=== PATIENT | male | born 1970 | race Caucasian/White ===

== ENCOUNTER 2020-03-03 16:00 | Outpatient (RCR) | payer OTHER, SELFPAY ==
--- NOTE | 2020-02-06 16:05 | PTOPEVAL ---
Thank you for referring Socrates Kenny to [facility]. Please review, sign, date and return this plan of care LAN. Pt seen for initial evaluation due to right lateral epicondylitis. 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 He requires additional skilled PT 1x/wk x 4 wk to address UE impairments. I agree with and certify that the following plan of care is medically necessary. Referring Physician Date Attending Provider: ZAN Jo Referring Provider: LisPT Outpatient Evaluation Start: 02/06/20 14:23 Freq: Status: Active Protocol: Document 02/06/20 14:25 CAP (Rec: 02/06/20 15:32 CAP [id number]) Therapy Assessment Status Assessment Status Assessment Status Evaluation Outpatient Past Medical History Past Medical History Source of Past Medical History Patient Neurological History Hx Neurological Disorders No Significant History Cardiovascular History Hx Cardiac Disorders No Significant History Respiratory History Hx Respiratory Disorders No Significant History Gastrointestinal History Hx Gastrointestinal Disorders No Significant History Genitourinary History Hx Genitourinary Disorders No Significant History Musculoskeletal History Hx Other Musculoskeletal Disorders Yes: rotator cuff injury, loose kneecaps Evaluation Information Problem Diagnosis right lateral epicondylitis Onset 2 month ago Cause unknown Additional Evaluation Detail He was DX with a right shoulder rotator cuff injury, but is unsure how he injured the shoulder. Cortison injections 4 years. Subjective Information Reports he started having Query Text:As Reported By Patient/ right arm pain after cutting Family down a tree with a chainsaw. He did not hit the arm on anything that would have caused the pain. He has full motion of the arm but with pain with both motion . He will wake with hand tingling. He sleeps in all positions. 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 He will take a standing break 2x/day. He is using ice, medication and lateral epicondylitis splint to improve pain and symptoms. He reports increased pain with fishing,
--- NOTE | 2020-03-03 16:31 | PTOPEVAL ---
Thank you for referring Socrates Kenny to [facility]. Please review, sign, date and return this plan of care LAN.w Pt has received 5 therapy visits to address right elbow pain. He demonstrates improve UE strength, wrist and forearm motion, and improved tolerance with daily activities. Goals have been met, DC skilled PT services at this time. I agree with and certify that the following plan of care is medically necessary. Referring Physician Date Attending Provider: ZAN Jo Therapy re-evaluation/discharge *PT Outpatient Evaluation Start: 02/06/20 14:23 Freq: Status: Active Protocol: Document 03/03/20 15:50 CAP (Rec: 03/03/20 16:27 CAP [id number]) Therapy Assessment Status Assessment Status Assessment Status Re-evaluation Evaluation Information Problem Diagnosis right lateral epicondylitis Onset 2 month ago Cause unknown Additional Evaluation Detail He was DX with a right shoulder rotator cuff injury, but is unsure how he injured the shoulder. Cortison injections 4 years. Subjective Information He reports improve pain of the Query Text:As Reported By Patient/ left elbow. He will have Family increased pain if he wakes with his elbow flexed position for a long time When reports elbow region tightness with increased reistance or increased activities of right UE. Denies pain or limitations with lifting and carrying. Pain Assessment Timing of Pain Assessment Timing of Pain Assessment Re-assessment Pain Scale Pain Scale Used Numeric (1 - 10) Self Report Pain Assessment Right Elbow(s) Reported Pain Level 1 Pain Description Aching Pain Frequency Intermittent Lowest Pain Intensity 0 Greatest Pain Intensity 2 Pain Aggravating Factors Prolonged Position Pain Behaviors None Pain Score Pain Score 1: Self Report Upper Extremity Range of Motion Elbow/Forearm Range of Motion Right Reason Not Measured WFL/Left Elbow Flexion - Active 120 Elbow Extension - Active 0 Forearm Supination - Active 90 Forearm Pronation - Active 60 Elbow/Forearm Range of Motion Comments no pain Wrist Range of Motion Right Wrist Flexion - Active 80 Wrist Extension - Active 45 Upper Extremity Muscle Strength Testing Elbow/Forearm Right Elbow Flexion Strength
== END 2020-03-04 15:32 | disposition home or self-care (01) ==
LOC: ANHPT 16:00
PROVIDERS: PCP Family Medicine; Visit Provider Nurse Practitioner Family
DX: M25.529 Pain in unspecified elbow (principal); M77.10 Lateral epicondylitis, unspecified elbow
CPT/HCPCS: 97035; 97110; 97140; 97161

== ENCOUNTER 2020-04-21 15:01 | Outpatient (CLI) | payer OTHER, SELFPAY ==
--- NOTE | ~2020-04-21 | XR_ITS ---
XR shoulder RT min 2V DATE: 04/21/2020 15:28 INDICATION: Shoulder pain TECHNIQUE: 4 views COMPARISON: None FINDINGS: No fracture or dislocation, periosteal reaction or bone destruction or abnormal soft tissue calcification. IMPRESSION: No significant abnormality Reviewed, dictated and finalized at location B. IMPRESSION: No significant abnormality
--- NOTE | ~2020-04-21 | XR_ITS ---
XR_[id number]_CR DATE: 04/21/2020 15:28 INDICATION: Right neck pain TECHNIQUE: AP, open mouth, lateral views COMPARISON: None FINDINGS: Minimal dextroscoliosis. Diffuse osteopenia. There is normal alignment of the cervical spine. No fracture or dislocation, locked facet or prevert ebral soft tissue swelling. There is mild degenerative disc disease at C3-4, C4-5 and C5-6. IMPRESSION: Mild degenerative change Reviewed, dictated and finalized at Location A. Reviewed, dictated and finalized at location B. IMPRESSION: Mild degenerative change
== END 2020-04-21 15:02 | disposition home or self-care (01) ==
LOC: ANHIMG 15:05
PROVIDERS: PCP Family Medicine; Visit Provider Nurse Practitioner Family
DX: M54.2 Cervicalgia (principal); M25.519 Pain in unspecified shoulder
CPT/HCPCS: 72040; 73030

== ENCOUNTER 2020-07-14 17:00 | Outpatient (RCR) | payer OTHER, SELFPAY ==
--- NOTE | 2020-05-26 15:52 | PTOPEVAL ---
PHYSICAL THERAPY EVALUATION AND PLAN OF CARE Thank you for referring Socrates Kenny to [facility].? The patient is scheduled to be seen for therapy? 2x/week for 4 weeks. Please review, sign, date and return this plan of care LAN. I agree with and certify that the following plan of care is medically necessary. Referring Physician Date Attending Provider: Arti Bender NP Evaluation Diagnosis right adhesive capsulitis Onset 1 month Subjective Information Socrates is here today and Query Text:As Reported By Patient/ reports he was diagnosed with Family adhesive capsulitis. Reports difficulting raising arm overhead and reaching behind his back. Also reports difficulty sleeping. Self Report Pain Assessment Right Shoulder(s) Reported Pain Level 3 Pain Description Aching Pain Frequency Acute,Intermittent Lowest Pain Intensity 1 Greatest Pain Intensity 7 Pain Score Pain Score 3: Self Report Upper Extremity Range of Motion Scapular/ Shoulder Range of Motion Right Shoulder Flexion - Active 148 Shoulder Abduction - Active 151 Shoulder Medial Rotation - Active T7 Query Text:Reach Behind the Back Shoulder Lateral Rotation - Active T3 Query Text:Reach Behind the Head Upper Extremity Muscle Strength Testing Scapular/Shoulder Right Shoulder Flexion Strength 4- Good - Shoulder Abduction Strength 4+ Good + Shoulder Medial Rotation Strength 4+ Good + Shoulder Lateral Rotation Strength 3+ Fair + Posture Sitting Position Head/C-Spine Posture Forward Head Thoracic Spine Posture Increased Kyphosis Thorax Posture Neutral Lumbar Spine Posture Neutral Shoulder Posture (L) Forward,(R) Forward Shoulder Subluxation Position (L) Neutral,(R) Neutral Scapula Posture (L) Tipped,(R) Tipped Additional Posture Comments unable to correct thoracic kyphosis with cues Palpation trigger points noted through infraspinatus, subscapularis, and pectoralis major and minor -tight and thick tissues noted Special Tests-Upper Extremity Shoulder Special Tests Empty Can (supraspinatus) Test Positive Right Painful Arc Positive Right Drop Arm Test Negative Right Hawkin's Jace Test Negative Right Infraspinatus Test Negative Right Active Compression Test (Perry's) Positive Right PT Clinical Summary Socrates is a 49 yo male
--- NOTE | 2020-06-23 14:55 | PTOPEVAL ---
PHYSICAL THERAPY PLAN OF CARE UPDATE AND PROGRESS REPORT Thank you for referring Socrates Kenny to [facility].? The patient is scheduled to be seen for therapy? 1x/week for 4 weeks. Please review, sign, date and return this plan of care LAN. I agree with and certify that the following plan of care is medically necessary. Referring Physician Date Attending Provider: Jeevan Santoyo MD Progress Diagnosis right adhesive capsulitis Onset 2 month Subjective Information Socrates is here today and Query Text:As Reported By Patient/ reports he was diagnosed with Family adhesive capsulitis. Reports difficulting raising arm overhead and reaching behind his back. Also reports difficulty sleeping. Self Report Pain Assessment Right Shoulder(s) Reported Pain Level 1 Pain Description Soreness Upper Extremity Range of Motion Scapular/ Shoulder Range of Motion Right Shoulder Flexion - Active 155 Shoulder Abduction - Active 160 Shoulder Medial Rotation - Active T7 Query Text:Reach Behind the Back Shoulder Lateral Rotation - Active T3 Query Text:Reach Behind the Head Upper Extremity Muscle Strength Testing Scapular/Shoulder Right Shoulder Flexion Strength 4 Good Shoulder Abduction Strength 4+ Good + Shoulder Horizontal Adduction Strength 5 Normal Shoulder Medial Rotation Strength 4+ Good + Shoulder Lateral Rotation Strength 5 Normal Muscle Length Testing Muscle Length Testing Scalene Group Muscle Length (R) Mild Tightness Query Text: Upper Trapezius Muscle Length (R) Moderate Tightness Levaetor Scapulae Muscle Length (R) Moderate Tightness Posture Sitting Position Head/C-Spine Posture Neutral Position Thoracic Spine Posture Increased Kyphosis Thorax Posture Neutral Lumbar Spine Posture Neutral Shoulder Posture (L) Forward,(R) Forward Shoulder Subluxation Position (L) Neutral,(R) Neutral Scapula Posture (L) Tipped,(R) Tipped Additional Posture Comments unable to correct thoracic kyphosis with cues Palpation trigger point noted in right supraspinatus and subscapularis PT Clinical Summary Socrates is a 49 yo male presenting to outpatient physical therapy with c/o subacute right shoulder pain. Socrates demonstrates an increase shoulder ROM in flexion and abduction. He does have a mil
--- NOTE | 2020-07-14 17:26 | PTOPEVAL ---
PHYSICAL THERAPY PROGRESS REPORT Thank you for referring Socrates Kenny to [facility].? I would like patient to follow-up with physician due to increase and change of symptoms over the last 10 days with two popping events. Please review, sign, date and return this plan of care LAN. I agree with and certify that the following plan of care is medically necessary. Referring Physician Date Attending Provider: Jeevan Santoyo MD Progress Diagnosis right adhesive capsulitis Onset 2 month Subjective Information Socrates has participated in physical therapy for right shoulder adhesive capsulitis for 12 visits. He was doing very well and we were making great progress toward meeting his functional and pain goals. 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 He came to his next therapy appointment and his ROM was reduced into external rotation and there were increased pain symptoms with the motion. We decided to let the shoulder rest, perform HEP, and ice for a week and return for next therapy appointment. States that two days after that appointment he experienced another large pop in the shoulder with the same pain symptoms. He came to his appointment today without significant report of symptoms; however, he was more irritable in symptoms and PROM today than last week. States that over the last week he was putting together his stair case and had to have his help hold up the weight. he also went hunting and climbing his tree stand increased symptoms. Self Report Pain Assessment Right Shoulder(s) Reported Pain Level 1 Pain Description Tightness Other Pain Description catching, Pain Score Pain Score 1: Self Report Interventions Used Interventions Used By Clinicians Manual Therapy Techniques Pain Relief Interventions Used By None Patient Other Alleviating Interventions instructed to rest and use ice Upper Extremity Range of Motion Scapular/ Shoulder Range of Motion Right Shoulder Flexion - Active 155 Shoulder Abduction - Active 160 Shoulder Medial Rotation - Active T7 Query Text:Reach Behind the Back Shoulder Lateral Rotation - Active T3 Query Text:Reach Behind the Head Scapular/Shoulder Range of Motion no pain with ROM Comments Upper Extremity Muscle Strength Testing Scapular/Shoulder Right Shoulder Flexion Strength 4+ Good + Shoulder Abduction Strength 4+ Good + Shoulder Medial Rotation Strength 5 Normal Shoulder Lateral Rotation Strength 4- Good - (last reassess was 01/19) Palpation not specifically tender to palpation of GHJ and surrounding tissues; does have tightness to infraspinatus and supraspinatus Special Tests-Upper Extremity Shoulder Special Tests Empty Can (supraspinatus) Test Positive Right Painful Arc Positive Right Drop Arm Test
--- NOTE | 2020-08-10 10:50 | PCPTNOTE ---
PHYSICAL THERAPY DISCHARGE NOTE Attending Provider: Jeevan Santoyo MD Patient:Socrates Kenny Date of :1970 Socrates's last re-assessment note was on 07/14/2020. He called to report that he is positive for partial tear of rotator cuff and would not be continuing PT at this time. He will be discharged at this time. Thank you for referring this patient to [facility]. Please review, sign, date and return this discharge summary LAN. I have been updated about the patient's current status and I agree with discharge from the above service at this time. Referring Physician Date
== END 2020-08-10 11:13 | disposition home or self-care (01) ==
LOC: ANHPT 17:00
PROVIDERS: PCP Family Medicine; Visit Provider Orthopaedic Surgery
DX: M25.519 Pain in unspecified shoulder (principal)
CPT/HCPCS: 97110; 97140; 97161

== ENCOUNTER 2020-07-28 07:34 | Outpatient (CLI) | payer OTHER, SELFPAY ==
--- NOTE | ~2020-07-28 | MR_ITS ---
EXAMINATION: MR shoulder RT wo con DATE: 07/28/2020 08:54 INDICATION: Right shoulder pain TECHNIQUE: Magnetic resonance imaging (MRI) of the right shoulder was performed without intravenous c ontrast. Sequences included axial PD-weighted FS FSE, coronal oblique PD-weighted FS FSE, coronal obl ique T2-weighted FS FSE, sagittal PD-weighted FS FSE, and sagittal T1-weighted SE. COMPARISON: None. FINDINGS: Coracoacromial arch: The acromion undersurface is curved in morphology (type II). The coracoacromial ligament is normal. M ild acromioclavicular osteoarthritis with small inferiorly directed osteophytes which remains separat e from the underlying supraspinatus by a thin intervening fat plane. Rotator cuff: Moderate supraspinatus tendinopathy with partial-thickness bursal sided tear measures 5 mm AP and 8 m m medial to lateral and involves at least 50% of the tendon thickness centered at the critical zone a pproximately 1-1.5 cm from the superior facet footplate of the greater tuberosity. The infraspinatus, teres minor tendons are normal. Mild subscapularis tendinopathy without discrete tear. Normal rotato r cuff muscle bulk and signal. Biceps tendon, glenoid labrum and glenohumeral cartilage: Long head of the biceps tendon is normal. Glenoid labrum is normal. Glenohumeral cartilage is normal. Fluid: Small amount of fluid in the long head biceps tendon sheath which is disproportionate to the physiolo gic amount of fluid in the glenohumeral joint space consistent with mild bicipital tenosynovitis. No loose osteochondral bodies. Small amount of fluid in the subacromial/subdeltoid bursa as well as the subcoracoid bursa consistent with mild bursitis. Bones: Normal marrow signal with no edema, fracture or abnormal marrow replacing process. Minimal erosive ch gómez at the superior facet of the greater tuberosity likely related to chronic rotator cuff disease. IMPRESSION: 1. Small moderate severity partial-thickness tear at the bursal side of the critical zone of the supr aspinatus tendon. 2. Mild bicipital tenosynovitis. 3. Mild subacromial/subdeltoid and subcoracoid bursitis. Reviewed, dictated and finalized at location A. ATION AND TRAINING COORDINATOR IMPRESSION: 1. Small moderate severity partial-thickness tear at the bursal side of the cri tical zone of the supraspinatus tendon. 2. Mild bicipital tenosynovitis. 3. Mild subacromial/subdeltoid and subcoracoid bursitis.
== END 2020-07-28 07:35 | disposition home or self-care (01) ==
PROVIDERS: PCP Family Medicine; Visit Provider Nurse Practitioner Family
DX: M75.51 Bursitis of right shoulder (principal); M75.21 Bicipital tendinitis, right shoulder
CPT/HCPCS: 73221

== ENCOUNTER 2020-08-23 02:01 | Outpatient (CLI) | payer OTHER, SELFPAY ==
[2020-08-23 18:52] LABS: SARS-CoV-2 RNA PCR Negative
== END 2020-08-23 02:02 | disposition home or self-care (01) ==
LOC: ANHCOVIDDT 02:02
PROVIDERS: PCP Family Medicine; Visit Provider Orthopaedic Surgery
DX: Z01.818 Encounter for other preprocedural examination (principal); Z20.828 Contact with and (suspected) exposure to other viral communicable diseases
CPT/HCPCS: 87635; C9803; U0003

== ENCOUNTER 2020-08-26 01:18 | Day surgery (SDC) | payer OTHER, SELFPAY ==
[2020-08-19 11:05] VITALS: BMI 23.1
--- NOTE | 2020-08-25 12:07 | WPDANESEPPF ---
Anes - Initial Pre Proc Eval Procedure: Operation Date: 08/26/20 12:00 Proposed Procedures p Arthroscopic Rotator Cuff Repair Right Shoulder with Subacromial Decompression - Clay May MD Date/Time: 08/25/20 12:07 Surgeon: Clay May MD Pre Op Diagnosis: tendon tear right shoulder Patient Data Age: 49 Gender: M Height: 1.8 m Weight: 75 kg Allergies Allergy/AdvReac Type Severity Reaction Status Date / Time naproxen AdvReac Mild Diarrhea Verified 08/26/20 11:17 Home Medications Medication Instructions Recorded Confirmed Type cyclobenzaprine 10 mg tablet 10 mg PO TID PRN #30 tablet 07/29/20 08/26/20 Rx ascorbic acid (vitamin C) 1 g PO DAILY 08/19/20 08/26/20 History meloxicam 15 mg PO HS 08/19/20 08/26/20 History multivitamin [Multiple Vitamin] 1 tablet PO DAILY 08/19/20 08/26/20 History Patient hx anesthesia problems: none Family hx anesthesia problems: none PMFSH Family History Family History Mother Family history of lupus erythematosus Other Diabetes mellitus Family history of arthritis Family history of malignant neoplasm Hypertension Social History Social History Smoking status: Never smoker Alcohol intake: never Substance use: never Living arrangements: with family Additional living arrangements comments: SPOUSE AND DAUGHTER Spiritual care concerns: No Anes - Eval Final PreProcedure Day of Procedure 08/25/20 12:07 Patient weight: normal Heart: regular rate and rhythm Lungs: clear to auscultation and normal air movement Airway: Mallampati scale class II Neurological: alert and oriented Last oral intake: >/= 8 hours ASA classification: I Emergent: no Anesthetic plan: proceed Anesthesia type and monitoring: general ETT Informed Consent: The patient's anesthetic plan and its attendant risks and benefits were discussed with the patient/family/POA. Questions were solicited and answers provided to the satisfaction of the patient/family/POA.
[2020-08-26] VITALS (7 sets, daily range): BP systolic 113–132; BP diastolic 77–94; PULSE 73–102; RESP 16–20; TEMP 36.1–36.5; O2SAT 95–100
[2020-08-26] MEDS: ACETAMINOPHEN 500 MG TABLET 1000 MG PO (11:20)
[2020-08-26] MEDS: LACTATED RINGERS 1,000 ML 30 ML IV CONT ×2 (11:38→17:18)
--- NOTE | 2020-08-26 13:35 | WPDHPUPDATE1 ---
History and Physical Update Update Date/Time: 08/26/20 13:35 History and Physical has been reviewed, including an updated exam of the patient. There are NO changes in the patient's condition. Risks, benefits, and alternatives have been discussed and questions answered. Patient agrees to proceed with procedure.
--- NOTE | 2020-08-26 14:03 | WPDANESPNB ---
Anes - Peripheral Nerve Block Date/Time: 08/26/20 14:03 I have discussed with the patient/family/POA the placement of a peripheral nerve block for post-operative pain management, including associated risks, benefits, complications, and side effects. Alternative methods of post-operative analgesia were detailed. Questions were solicited and answers provided to the satisfaction of the patient/family/POA. Time-Out: A pre-procedural Time-Out was completed immediately before starting the procedure and confirmed: Patient Identification, Site, Procedure, Patient Position and the Availability of Requisite Equipment. Clinical Indications: Acute post-operative pain management requested by the operative surgeon. Nerve Block Insertion Note Anes-nerve block: supraclavicular right Patient position: supine Skin prep: chlorhexidine Needle: 22 gauge, stimulating, insulated echogenic needle. Needle length: 80 mm Technique: ultrasound (in plane) Injectate: bupivacaine 0.5% with epi 5 mcg/ml (20cc) Observations: tolerated well Complications: none Procedure start time:: 1350 Procedure end time:: 1355
[2020-08-26] MEDS: ceFAZolin 2 GM/D5W 50 ML 2 GM/50 ML BAG IVPB (14:21)
--- NOTE | 2020-08-26 16:28 | SUR.OPER ---
Nanci Grimm Tunneler Tunnel Pro System Exp 2024-08, Lot [id number]. Ultratape cobraid blue, exp 2025-03-31, Lot [id number], Ultratape cobraid blue exp 2024-11-27, Lot [id number]. Ultratape blue exp 2025-03-12, Lot [id number]. Ultratape blue exp 2024-11-19 Lot [id number]. OrthoCord Exp 2023-01-14, Lot [id number] x 2 each.
--- NOTE | 2020-08-26 17:26 | SUR.OPER ---
noted brusing right upper arm where coban applied on sterile field per Dr May/aware.
--- NOTE | 2020-08-26 17:28 | PM.PROC ---
Procedure Note - Detailed Date of procedure: 08/26/20 Pre-op diagnosis: tendon tear right shoulder 1. Rotator cuff tear (high grade partial bursal side) 2. Subacromial impingement Post-op diagnosis: same Procedure performed: 1. Arthrosocopic rotator cuff repair. 2. Arthroscopic subacromial decompression. Anesthesia: GETA Surgeon: Clay May MD White Sugar Syrup Operator: Lindsey Guevara PA-C Estimated blood loss (mL): 20 Complications: None Disposition: PACU Findings: Physician promotional advertising assistant required for surgery; including patient positioning, draping, suture retrieval, portal management, wound closure, and dressing and sling placement. Operative detail: Preoperative antibiotics were given. An interscalene block was administered in the preoperative area. The patient was bought brought to the operating room. A general anesthetic was administered. The patient was carefully positioned in the beach chair position. The head and neck were carefully positioned. The non operative extremity was also carefully positioned. The shoulder was prepped and draped in the usual sterile fashion. Examination was performed. No abnormal findings were observed. Standard posterior and anterior arthroscopic portals were established. Inflow achieved with the arthroscopic pump using saline and epinephrine. The glenohumeral joint was carefully inspected. No intraarticular treatment was required. The glenohumeral cartilage appeared healthy as did the biceps tendon. The subscapularis muscle was normal and the sub for spinatus tendon also did not show any evidence of tearing on the articular side. Attention was turned to the subacromial space. A complete bursectomy was performed. An acromioplasty was performed. The tear configuration was carefully assessed. The tear was just medial to the tendinous insertion closer to the musculotendinous junction. This was exactly opposite the subacromial spur and clearly was an abrasive affect from the acromion on the tendon. Fortunately there was good tendon remaining medial as well as lateral. The articular tendon was still intact and from the joint spaces look normal. It was elected to try to preserve this articular tendon tissue. Also it was felt that retaining the lateral tissue on the tuberosity would be beneficial. 2 bone tunnels were created. There were passed through the articular tendon into the rotator cuff footprint. The sutures were then woven into the medial tendon tissue. Six sutures were passed. A rip stop technique was utilized. The ArthroTunneler technique was utilized. Three sutures were passed through each tunnel. All sutures were then passed through the cuff tissue using the antegrade passer. The sutures were tied arthroscopically. The arthroscopic instruments were removed. The wounds were closed with 3-0 Monocryl subcuticular suture and steri strips. There were no complications. A sling was applied and the patient brought to the recovery room.
[2020-08-26] MEDS: oxyCODONE HCL (*CRX) 5 MG TAB IR PO (18:38)
== END 2020-08-26 19:00 | disposition home or self-care (01) ==
PROVIDERS: PCP Family Medicine; Visit Provider Orthopaedic Surgery
PROC: (CPT 29805; principal; 2020-08-26 12:00)
DX: M75.101 Unspecified rotator cuff tear or rupture of right shoulder, not specified as traumatic (principal); M75.41 Impingement syndrome of right shoulder; G89.18 Other acute postprocedural pain
CPT/HCPCS: 29827; 29826; 64415; A4565; A9270; J0690; J1100; J2250; J2405; J2704; J3010; J7120

== ENCOUNTER 2020-11-15 12:30 | Outpatient (RCR) | payer OTHER, SELFPAY ==
[2020-09-20 09:27] VITALS: BP_SYST 90
--- NOTE | 2020-09-20 10:22 | PTOPEVAL ---
PHYSICAL THERAPY EVALUATION AND PLAN OF CARE Thank you for referring Socrates Kenny to [facility].? The patient is scheduled to be seen for therapy? 2x/week for 4 weeks. Please review, sign, date and return this plan of care LAN. I agree with and certify that the following plan of care is medically necessary. Referring Physician Date Attending Provider: Clay May MD Evaluation Diagnosis s/p right rotator cuff repair Onset 08/26/2020 Subjective Information Surgery 3 weeks ago and doing Query Text:As Reported By Patient/ well. He wears the sling out Family of the home and when up at home. He will take it off to rest on the couch. States that pain is well managed with rest and medication. He states understanding of these precautions. Self Report Pain Assessment Right Shoulder(s) Reported Pain Level 1 Pain Description Aching Lowest Pain Intensity 0 Greatest Pain Intensity 5 Other Pain Aggravating Factors movement Pain Behaviors None Pain Score Pain Score 1: Self Report Interventions Used Interventions Used By Clinicians Manual Therapy Techniques Pain Relief Interventions Used By Ice,Medication Patient Upper Extremity Range of Motion Scapular/ Shoulder Range of Motion Right Shoulder Flexion - Passive 100 Shoulder Abduction - Passive 90 Shoulder Lateral Rotation - Passive 45 Muscle Length Testing Muscle Length Testing Upper Trapezius Muscle Length (R) Moderate Tightness Shoulder Internal Rotators Muscle Length (R) Moderate Tightness Pectoralis Major- Sternal Fibers Muscle (R) Moderate Tightness Length Pectoralis Major- Clavicular Fibers (R) Moderate Tightness Muscle Length Palpation well healed incision sites, minimal scar tissue noted PT Clinical Summary Socrates is a 49 yo male presenting to outpatient physical therapy 3.5 weeks s/p right rotator cuff repair and arthroscopy. He presents today with precautions for passive ROM for another 2 weeks. His passive ROM is progressing well for time frame since surgery and pain is well managed. He will continue to benefit from skilled PT to progress through
[2020-10-18 08:49] VITALS: BP_SYST 145
--- NOTE | 2020-10-18 09:27 | PTOPEVAL ---
PHYSICAL THERAPY PLAN OF CARE UPDATE AND PROGRESS REPORT Thank you for referring Socrates Kenny to [facility].? The patient is scheduled to be seen for therapy? 2x/week for 4 weeks. Please review, sign, date and return this plan of care LAN. I agree with and certify that the following plan of care is medically necessary. Referring Physician Date Attending Provider: Clay May MD Progress Diagnosis s/p right rotator cuff repair Onset 08/26/2020 Subjective Information Surgery 7 weeks ago and doing Query Text:As Reported By Patient/ well. Reports very minimal Family pain with mostly tightness as his complaint of right shoulder. 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 Self Report Pain Assessment Right Shoulder(s) Reported Pain Level 1 Pain Score Pain Score 1: Self Report Interventions Used Interventions Used By Clinicians Exercise,Ice Pain Relief Interventions Used By Ice,Medication Patient Upper Extremity Range of Motion Scapular/ Shoulder Range of Motion Right Shoulder Flexion - Active 152 Shoulder Flexion - Passive 155 Shoulder Abduction - Active 160 Shoulder Abduction - Passive 145 Shoulder Medial Rotation - Active hip Query Text:Reach Behind the Back Shoulder Lateral Rotation - Active 62 Upper Extremity Muscle Strength Testing Scapular/Shoulder Right Shoulder Flexion Strength 4- Good - Shoulder Abduction Strength 4- Good - Shoulder Medial Rotation Strength 5 Normal Shoulder Lateral Rotation Strength 4 Good General Exercise General Exercises Side Right Exercise Type Active/Assistive,Passive Exercise Description -Seated pulleys flexion, Query Text:Record Sets, Reps, [id number], behind back IR Resistance, and Position [id number] -standing bilateral scapular retraction red band x15 -standing bilateral shoulder extension red band x15 -Active ROM: bilateral scaption standing x15 back against wall Bike Exercise Bike Extremity Bilateral Upper Type of Bike Airdyne Duration (minutes) 4 Manual Therapy Manual Therapy Side Right Manual Therapy Location Shoulder Patient Position Supine Manual Therapy Treatment Passive Stretching,Contract/ Relax Technique Treatment C
--- NOTE | 2020-11-15 16:29 | PTOPEVAL ---
PHYSICAL THERAPY DISCHARGE SUMMARY Thank you for referring Socrates Kenny to [facility].? The patient has been seen 17 visits for progressive therapy for right rotator cuff repair. Goals have been met; D/C PT. Please review, sign, date and return this plan of care. I agree with and certify the following plan of care. Referring Physician Date Attending Provider: Clay May MD *PT Outpatient Discharge Start: 09/20/20 09:20 Freq: Status: Active Protocol: Document 11/15/20 12:34 MLV (Rec: 11/15/20 13:26 MLV [id number]) Assessment Status Discharge Evaluation Information Problem Diagnosis s/p right rotator cuff repair Onset 08/26/2020 Subjective Information Patient reports no pain when Query Text:As Reported By Patient/ not moving and sleeping. The Family patient feels stronger and the only symptom remaining is some mild tightness with movements. Patient denies trouble with his exercises at home. Patient Pain Assessment Timing of Pain Assessment Timing of Pain Assessment Assessment Self Report Self Report Pain Level 0 Pain Score Pain Score 0: Self Report Upper Extremity Range of Motion General Upper Extremity Range of Motion Gross Upper Extremity Range of Motion active shoulder motion right: Comments flexion 157, abduction 157, extension 56, ER 80, IR 40 degrees (supine measurement for rotations) *IR reach behind back: right to T12, left to T5. Upper Extremity Muscle Strength Testing General Upper Extremity Strength Gross Upper Extremity Strength Comments 5/5 throughout right shoulder motions with isometric testing . Fatigue with repetitions of resistive exercise minimal to none Posture Posture Standing Position Additional Posture Comments simba. shoulders forward with increased forward position during IR attempts. Patient educated on correcting control of posture with movement to further improved IR active motion on the right. PT Clinical Summary Mr. Kenny is a 49 y/o male who has been seen 17 visits for the dx of right rot. cuff repair. The patient has
== END 2020-11-16 12:51 | disposition home or self-care (01) ==
LOC: ANHPT 12:30
PROVIDERS: PCP Family Medicine; Visit Provider Orthopaedic Surgery
DX: Z48.89 Encounter for other specified surgical aftercare (principal)
CPT/HCPCS: 97110; 97140; 97161

== ENCOUNTER 2021-02-01 08:48 | Outpatient (CLI) | payer OTHER, SELFPAY ==
--- NOTE | 2021-02-01 | ECG_ITS ---
Measurements Intervals [place] Rate: 58 P: 52 [place]: 143 QRS: 37 QRSD: 105 T: 14 QT: 394 QTc: 390 Interpretive Statements SINUS BRADYCARDIA BASELINE ARTIFACT- V1 BORDERLINE ECG Electronically Signed On 02-01-2021 9:59:06 CDT by Maximino Barbosa D.O.
[2021-02-01 09:21] LABS: Hematocrit 47.4 % (42.0-52.0); Hemoglobin 15.9 g/dL (14.0-18.0); Mean Corpuscular HGB Conc 33.5 g/dl (32-36); Mean Corpuscular Hemoglobin 29.9 pg (26-34); Mean Corpuscular Volume 89.1 fl (80-100); Mean Platelet Volume 10.7 fl (7.4-10.4); Platelet Count Result 218 k/mm3 (150-375); Red Blood Count 5.32 M/mm3 (4.6-6.20); Red Cell Distribution Width 12.4 % (11.5-14.5); White Blood Count 4.3 K/mm3 (4.5-10.0)
[2021-02-01 09:33] LABS: Anion Gap 5 mmol/L (8-16); Blood Urea Nitrogen 15 mg/dL (9-20); Calcium 9.4 mg/dL (8.4-10.2); Carbon Dioxide 28 mmol/L (22-30); Chloride 107 mmol/L (98-107); Cholesterol 207 mg/dL (0-200); Estimated Glomerular Filt Rate > 60; Glucose 98 mg/dL (75-110); HDL Direct 39 mg/dL; Potassium 4.2 mmol/L (3.4-5.0); Sodium 140 mmol/L (137-145); Triglycerides 118 mg/dL (<150)
[2021-02-01 09:43] LABS: LDL Cholesterol Direct 141 mg/dL
[2021-02-01 10:06] LABS: Prostate Specific Antigen 1.7 ng/mL (< OR = 4.0)
== END 2021-02-01 08:49 | disposition home or self-care (01) ==
PROVIDERS: PCP Family Medicine; Visit Provider Nurse Practitioner Family
DX: Z12.5 Encounter for screening for malignant neoplasm of prostate (principal); R07.89 Other chest pain; Z13.220 Encounter for screening for lipoid disorders; R00.1 Bradycardia, unspecified
CPT/HCPCS: 36415; 80048; 80061; 84153; 84443; 85027; 93005

== ENCOUNTER 2021-03-01 08:58 | Outpatient (CLI) | payer OTHER, SELFPAY ==
--- NOTE | 2021-03-01 09:03 | EST_ITS ---
Patient Info Name: Socrates Kenny Age: 50 years : 1970 Gender: Male Ht: 72 in Wt: 165 lbs BSA: 1.95 m2 Exam Date: 03/01/2021 9:08 AM Exam Location: [facility] Stress Patient Status: Outpatient Admit Date: 03/01/2021 Staff Ordering Physician: Arlene العراقي Attending Provider: Arlene العراقي Exercise Technologist: Cynthia Ruelas RDCS Exercise Physician: Maximino Barbosa DO Exam Type: CA stress test treadmill Study Info Indications R07.9 - Chest pain, unspecified A treadmill exercise stress test was performed. Summary 1. 1. Negative Oswald exercise stress test for ischemic ST changes by ECG criteria. 2. 2. Good functional capacity, achieving 10 METs of workload. 3. 3. Appropriate HR response to exercise. 4. 4. Appropriate HR recovery at 1 minute post exercise. 5. 5. No imaging with stress testing. 6. 6. Patient informed of the above results. Protocol: Oswald Stress ECG Details Stage: REST Duration (min): 6 min : 4 sec Speed (mph): 0.0 Grade (%): 0 HR (bpm): 66 SBP (mmHg): 112 DBP (mmHg): 51 METS: --- Stage: REST Duration (min): 10 min : 45 sec Speed (mph): 0.0 Grade (%): 0 HR (bpm): 64 SBP (mmHg): 112 DBP (mmHg): 51 METS: --- Stage: STAGE 1 Duration (min): 1 min : 0 sec Speed (mph): 1.7 Grade (%): 10 HR (bpm): 95 SBP (mmHg): 112 DBP (mmHg): 51 METS: --- Stage: STAGE 1 Duration (min): 2 min : 0 sec Speed (mph): 1.7 Grade (%): 10 HR (bpm): 106 SBP (mmHg): 112 DBP (mmHg): 51 METS: --- Stage: STAGE 1 Duration (min): 3 min : 0 sec Speed (mph): 1.7 Grade (%): 10 HR (bpm): 111 SBP (mmHg): 119 DBP (mmHg): 85 METS: --- Stage: STAGE 2 Duration (min): 1 min : 0 sec Speed (mph): 2.5 Grade (%): 12 HR (bpm): 121 SBP (mmHg): 119 DBP (mmHg): 85 METS: --- Stage: STAGE 2 Duration (min): 2 min : 0 sec Speed (mph): 2.5 Grade (%): 12 HR (bpm): 130 SBP (mmHg): 158 DBP (mmHg): 90 METS: --- Stage: STAGE 2 Duration (min): 3 min : 0 sec Speed (mph): 2.5 Grade (%): 12 HR (bpm): 141 SBP (mmHg): 158 DBP (mmHg): 90 METS: --- Stage: STAGE 3 Duration (min): 1 min : 0 sec Speed (mph): 3.4 Grade (%): 14 HR (bpm): 151 SBP (mmHg): 158 DBP (mmHg): 90 METS: --- Stage: STAGE 3 Duration (min): 2 min : 0 sec Speed (mph): 3.4 Grade (%): 14 HR (bpm): 165 SBP (mmHg): 158 DBP (mmHg): 90 METS: --- Stage: STAGE 1 Duration (min): 3 min : 0 sec Speed (mph): 1.7 Grade (%): 10 HR (bpm): 111 SBP (mmHg): 119 DBP (mmHg): 85 METS: --- Stage: STAGE 2 Duration (min): 3 min : 0 sec Speed (mph): 2.5 Grade (%): 12 HR (bpm): 141 SBP (mmHg): 158 DBP (mmHg): 90 METS: --- Stage: STAGE 3 Duration (min): 3 min : 0 sec Speed (mph)
== END 2021-03-01 08:59 | disposition home or self-care (01) ==
PROVIDERS: PCP Family Medicine; Visit Provider Nurse Practitioner Family
DX: R07.9 Chest pain, unspecified (principal)
CPT/HCPCS: 93017

== ENCOUNTER 2022-05-03 13:31 | Outpatient (CLI) | payer OTHER, SELFPAY ==
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
== END 2022-05-03 13:32 | disposition home or self-care (01) ==
LOC: ANHIMG 13:37
PROVIDERS: PCP Family Medicine; Visit Provider Physician Assistant Medical
DX: R07.81 Pleurodynia (principal)
CPT/HCPCS: 71046

== ENCOUNTER 2023-10-31 10:05 | Outpatient (CLI) | payer OTHER, SELFPAY ==
[2023-10-31 11:00] LABS: Hematocrit 49.5 % (42.0-52.0); Mean Corpuscular HGB Conc 32.3 g/dl (32-36); Mean Corpuscular Hemoglobin 29.7 pg (26-34); Mean Platelet Volume 11.2 fl (7.4-10.4); Platelet Count Result 233 k/mm3 (150-375); Red Blood Count 5.38 M/mm3 (4.6-6.20); Red Cell Distribution Width 12.7 % (11.5-14.5); White Blood Count 5.8 K/mm3 (4.5-10.0)
[2023-10-31 12:04] LABS: Alanine Aminotransferase 27 U/L (6-50); Albumin Level 4.4 g/dL (3.5-5.1); Alkaline Phosphatase 100 U/L (38-126); Anion Gap 7 mmol/L (8-16); Aspartate Amino Transferase 25 U/L (17-59); Blood Urea Nitrogen 17 mg/dL (9-20); Calcium 9.6 mg/dL (8.4-10.2); Carbon Dioxide 27 mmol/L (22-30); Chloride 106 mmol/L (98-107); Cholesterol 202 mg/dL (0-200); Estimated Glomerular Filt Rate > 60; Glucose 100 mg/dL (65-110); HDL Direct 40 mg/dL; Potassium 3.9 mmol/L (3.4-5.0); Sodium 140 mmol/L (137-145); Triglycerides 113 mg/dL (<150)
[2023-10-31 12:24] LABS: LDL Cholesterol Direct 137 mg/dL
[2023-10-31 12:43] LABS: Prostate Specific Antigen 3.2 ng/mL (< OR = 4.0)
== END 2023-10-31 10:06 | disposition home or self-care (01) ==
PROVIDERS: PCP Family Medicine; Visit Provider Nurse Practitioner Family
DX: D72.819 Decreased white blood cell count, unspecified (principal); Z13.29 Encounter for screening for other suspected endocrine disorder; Z12.5 Encounter for screening for malignant neoplasm of prostate; E78.00 Pure hypercholesterolemia, unspecified; Z13.1 Encounter for screening for diabetes mellitus
CPT/HCPCS: 36415; 80053; 80061; 84153; 84443; 85027; G0103

== ENCOUNTER 2024-05-08 15:29 | Outpatient (CLI) | payer OTHER, SELFPAY ==
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
== END 2024-05-08 15:30 | disposition home or self-care (01) ==
LOC: ANHIMG 15:34
PROVIDERS: PCP Family Medicine
DX: M19.041 Primary osteoarthritis, right hand (principal)
CPT/HCPCS: 73120

== ENCOUNTER 2025-03-25 13:52 | Outpatient (CLI) | payer OTHER, SELFPAY ==
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
== END 2025-03-25 13:53 | disposition home or self-care (01) ==
PROVIDERS: PCP Family Medicine; Visit Provider Nurse Practitioner Adult Health
DX: M25.512 Pain in left shoulder (principal); M25.612 Stiffness of left shoulder, not elsewhere classified
CPT/HCPCS: 73030

== ENCOUNTER 2025-05-20 14:30 | Outpatient (RCR) | payer OTHER, SELFPAY ==
--- NOTE | 2025-04-09 11:54 | OPREHPOC ---
Outpatient Therapy Plan of Care This is a Multidisciplinary Plan of Care that may contain components documented by all disciplines (PT, OT, and ST.) PT Problem 1 PT Problem #1 Knowledge Deficit PT Goal 1 Goal / Goal Update 1*independent with HEP 2* pt voice correct work station set up Target Visit 8 PT Problem 2 PT Problem #2 Pain PT Goal 1 Goal / Goal Update 1* pt report pain rating of 2/10 at worst 2* pt report times of NO pain 3* pt report with sleeping, awaken 1x/night due to pain Target Visit 8 PT Problem 3 PT Problem #3 Impaired Strength PT Goal 1 Goal / Goal Update Increase thoracic- scapular strength, to improve posture and positioning: * pt stand with L shoulder in correct position Target Visit 8 PT Problem 4 PT Problem #4 Impaired Flexibility PT Goal 1 Goal / Goal Update pt perform 3 reps without an increase in pain reported 1* cervical rotation to L 2* cervical extension Target Visit 8
--- NOTE | 2025-04-09 11:55 | PTOPEVAL1 ---
Assessment and note entered by Kelly Webster, PT Evaluation Information Assessment Status Evaluation ICD-10 Condition Codes (PT) Cervicalgia M54.2,Pain in left shoulder M25.512 Onset March 17 Subjective Information beginning of March, start of L shoulder and neck pain; R hand dominant; can do everything at home, but have pain moving L arm dr gave him muscle relaxer and pain meds; xray: joint space narrowing, subdhondral cyst formation, osteophyte, mild OA; History: R shoulder arthroscopy activity: computer work; independent with all home and work tasks Reported Pain Level Pain Score Self Report Additional Pain Score Comments pain range in the past week 1-10; top of shoulder, upper traps increase pain; sleeping decrease pain: meds with sleeping: tend to sleep on stomach, but do change to sides and back; awaken from sleep 2x/ night due to pain Assessment PT Clinical Summary Socrates has the diagnosis of cervical pain, L shoulder pain with onset about 3 weeks ago when awakening in the morning. He is able to do all of his usual activity but pain always there and sleeping is disrupted- awaken 2x/night due to pain . Neck Index self rating is 12 % limitation in activity level. 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 With the evaluation: he has full ROM of L shoulder and cervical, with cervical rotation to L and extension have an increase pain in L upper traps area; poor posture with forward head, rounded shoulders and trunk; tenderness over L upper traps. Skilled PT services are indicated for modalities to decrease pain and tightness over upper traps, therapeutic exercises to stretch upper traps and strengthen thoracic-scapular area for improved posture and positioning of neck and shoulder, with education for HEP and posture/ body mechanics. Plan of Care Interventions Electrical Stimulation,Hot Pack/Cold Pack,Manual Therapy,Mechanical Traction,Neuro Re-education, Patient/Caregiver Education,Therapeutic Activities ,Therapeutic Exercise,Ultrasound,Other Other Interventions taping, dry needling--he agrees to & has had in the past PT Services Indicated Yes Treatment Frequency and 1-2x/wk for 8 visits Duration These treatments will address the objective and functional deficits as defined above. The patient will be advanced safely and appropriately in order for the patient to progress towards his/her prior level of function. Additional exercises will be introduced and as well as a comprehensive home exercise program upon discharge, if needed, ?to ensure carryover of functional gains achieved in the clinic. This treatment plan has been reviewed and agreement upon by the patient.
--- NOTE | 2025-05-20 15:20 | OPREHPOC ---
Outpatient Therapy Plan of Care This is a Multidisciplinary Plan of Care that may contain components documented by all disciplines (PT, OT, and ST.) PT Problem 1 PT Problem #1 Knowledge Deficit PT Goal 1 Goal / Goal Update 1*independent with HEP 2* pt voice correct work station set up 05-20-25 d/c goals met Target Visit 8 Progress Met PT Problem 2 PT Problem #2 Pain PT Goal 1 Goal / Goal Update 1* pt report pain rating of 2/10 at worst 2* pt report times of NO pain 3* pt report with sleeping, awaken 1x/night due to pain 05-20-25 d/c goals not met Target Visit 8 Progress Not Met PT Problem 3 PT Problem #3 Impaired Strength PT Goal 1 Goal / Goal Update Increase thoracic- scapular strength, to improve posture and positioning: * pt stand with L shoulder in correct position 05-20-25 d/c goal met Target Visit 8 Progress Met PT Problem 4 PT Problem #4 Impaired Flexibility PT Goal 1 Goal / Goal Update pt perform 3 reps without an increase in pain reported 1* cervical rotation to L 2* cervical extension 05-20-25 d/c goal 2 met Target Visit 8 Progress Partially Met
--- NOTE | 2025-05-20 15:20 | PTOPDC ---
Assessment and note entered by Kelly Webster, PT Assessment Status Discharge ICD-10 Condition Codes (PT) Cervicalgia M54.2,Pain in left shoulder M25.512 Onset March 17 Subjective Information having more numbness, all L fingers are numb, all the time; have been doing the exercises, and feel like I am stronger but still having problems; going to have an MRI of shoulder on Oct 1 and elbow and nerve test of L arm Oct 14; Reported Pain Level Pain Score 2: Self Report Additional Pain Score Comments pain range in the past week 2-5/10; pain in L shoulder, numbness in L arm to all fingers- constant; no pain in neck; increase pain: prone on elbows, lie on stomach and turn head to L decrease pain: change positions; muscle relaxers to help sleep; muscle cream; ice; also have arthritis med script- not sure if it helps or not report awakening from sleep due to pain 2-3x/night ; Assessment PT Clinical Summary Socrates has received 8 PT sessions. Initial evaluation compared to today's assessment: pain rating from 1-4/10 to 2-5/10 with constant numbness into L UE to all fingers; self assessment with neck index rating from 12 to 18% limitation in activity level; reports same with awakening from sleeping 2x/night due to pain; cervical rotation to the L still increases L cervical pain; no longer has pain with cervical extension; posture with rounded shoulders, L more forward than R; education for HEP, posture and body mechanics. The goals were partially met. He is scheduled to have an MRI and nerve conduction test. Discharge PT at this time. He is to continue with his HEP, monitor posture at work station, frequent position changes and monitor numbness in UE. Plan of Care PT Services Indicated No
== END 2025-05-21 10:35 | disposition home or self-care (01) ==
LOC: ANHPT 14:30
PROVIDERS: PCP Family Medicine; Visit Provider Nurse Practitioner Adult Health
DX: M54.12 Radiculopathy, cervical region (principal); M25.619 Stiffness of unspecified shoulder, not elsewhere classified; M75.100 Unspecified rotator cuff tear or rupture of unspecified shoulder, not specified as traumatic
CPT/HCPCS: 97014; 97110; 97140; 97161; 97530; G0283

== ENCOUNTER 2025-06-17 13:43 | Outpatient (CLI) | payer OTHER, SELFPAY ==
--- NOTE | ~2025-06-17 | MR_ITS ---
EXAMINATION: MR shoulder LT wo con DATE: 06/17/2025 14:31 INDICATION: Left shoulder stiffness and pain TECHNIQUE: Magnetic resonance imaging (MRI) of the left shoulder was performed without intravenous contrast. Sequences included axial PD-weighted FS FSE, coronal oblique PD-weighted FS FSE, coronal oblique T2-weighted FS FSE, sagittal PD-weighted FS FSE, and sagittal T1-weighted SE. COMPARISON: None. FINDINGS: Coracoacromial arch: The acromion undersurface is curved in morphology (type II). The coracoacromial ligament is normal. Mild acromioclavicular osteoarthritis. Rotator cuff: Mild supraspinatus tendinopathy. There is a small partial-thickness intrasubstance tear extending 5 mm AP along the posterior aspect of the superior facet footplate of the supraspinatus tendon. The tear measures up to 6 mm medial to lateral and involves up to one third to one half of the tendon thickness but appears to spare the articular and bursal sides of the tendon. There is mild cystic change underlying the superior facet likely related to chronic rotator cuff disease. The teres minor and subscapularis tendons are normal. Normal rotator cuff muscle bulk and signal. Biceps tendon, glenoid labrum and glenohumeral cartilage: Long head of the biceps tendon is normal. Glenoid labrum is normal. Glenohumeral cartilage is normal. Fluid: Physiologic amount of fluid in the glenohumeral joint and biceps tendon sheath. No loose osteochondral bodies. Mild increased fluid signal in the subacromial/subdeltoid bursa consistent with minimal bursitis. Bones: Normal marrow signal with no edema, fracture or abnormal marrow replacing process. IMPRESSION: 1. Supraspinatus tendinopathy with small mild to moderate severity intrasubstance tear extending 5 mm AP along the superior facet footplate of the tendon. 2. Mild acromion clavicular osteoarthritis. 3. Minimal subacromial/subdeltoid bursitis. Reviewed, dictated and finalized at location A. IMPRESSION: 1. Supraspinatus tendinopathy with small mild to moderate severity intrasubstan ce tear extending 5 mm AP along the superior facet footplate of the tendon. 2. Mild acromion clavicular osteoarthritis. 3. Minimal subacromial/subdeltoid bursitis.
== END 2025-06-17 13:44 | disposition home or self-care (01) ==
PROVIDERS: PCP Family Medicine; Visit Provider Nurse Practitioner Adult Health
DX: M54.12 Radiculopathy, cervical region (principal); R20.0 Anesthesia of skin; M19.012 Primary osteoarthritis, left shoulder; M75.52 Bursitis of left shoulder
CPT/HCPCS: 73221

== ENCOUNTER 2025-07-02 12:18 | Outpatient (CLI) | payer OTHER, SELFPAY ==
--- NOTE | 2025-07-02 13:00 | NEURO_ITS ---
Impression: # Complains of pain in left shoulder. ? # Not Carpal Tunnel Syndrome ? 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 ? # Needle/ EMG exam with mild scarcity of motor unit potentials in left Deltoid muscle without anyother neurogenic changes. ? # Patient does have left Ulnar to median double cross innervation. ? # Considering left Deltoid mild scarcity of motor unit potentials, higher involvement needs to be ruled out and MRI of cervical spine suggested. ? Nerve Conduction Studies ?Stim Site NR Peak (ms) P-T Amp (?V) Site1 Site2 Delta-P (ms) Dist (cm) Kranthi (m/s) Left Median Anti Sensory (2-3nd Digit) Wrist ? 3.0 9.1 Wrist 2-3nd Digit 3.0 14.0 47 Wrist ? 3.2 9.9 Wrist 2-3nd Digit 3.0 14.0 47 Right Median Anti Sensory (2-3nd Digit) Wrist ? 3.5 8.3 Wrist 2-3nd Digit 3.5 14.0 40 Wrist ? 3.4 7.8 Wrist 2-3nd Digit 3.5 14.0 40 Left Radial Anti Sensory (Base 1st Digit) Wrist ? 1.8 24.9 Wrist Base 1st Digit 1.8 0.0 Right Radial Anti Sensory (Base 1st Digit) Wrist ? 2.0 23.1 Wrist Base 1st Digit 2.0 0.0 Left Ulnar Anti Sensory (5th Digit) Wrist ? 2.8 15.5 Wrist 5th Digit 2.8 14.0 50 Right Ulnar Anti Sensory (5th Digit) Wrist ? 2.3 15.4 Wrist 5th Digit 2.3 14.0 61 ?Stim Site NR Onset (ms) O-P Amp (mV) Site1 Site2 Delta-0 (ms) Dist (cm) Kranthi (m/s) Left Median Motor (Abd Poll Brev)??? ULNAR TO MEDIAN CROSS INERVATION Wrist ? 3.3 2.0 Elbow Wrist 5.7 31.0 54 Elbow ? 9.0 5.2 ELB/ADM Wrist 0.3 0.0 ELB/ADM ? 3.6 5.8 Erbs ELB/ADM 6.6 0.0 Erbs ? 10.2 4.1 ? 8.0 4.1 Right Median Motor (Abd Poll Brev) Wrist ? 3.4 1.7 Elbow Wrist 5.4 30.0 56 Elbow ? 8.8 5.4 Left Ulnar Motor (Abd Dig Minimi) Wrist ? 3.0 9.0 A Elbow Wrist 6.2 32.0 52 A Elbow ? 9.2 6.4 B Elbow Wrist 4.2 23.0 55 B Elbow ? 7.2 6.4 Right Ulnar Motor (Abd Dig Minimi) Wrist ? 2.6 6.5 A Elbow Wrist 6.1 31.0 51 A Elbow ? 8.7 5.1 B Elbow Wrist 4.4 22.0 50 B Elbow ? 7.0 4.7 F Wave Studies ?NR F-Lat (ms) L-R F-Lat (ms) Left Median (Mrkrs) (Abd Poll Brev) ? 30.51 2.36 Right Median (Mrkrs) (Abd Poll Brev) ? 32.87 2.36 Left Ulnar (Mrkrs) (Abd Dig Min) ? 29.32 2.83 Right Ulnar (Mrkrs) (Abd Dig Min) ? 32.15 2.83 Electromyography ?Side Muscle Nerve Root Ins Act Fibs Amp Dur Recrt Comment Right 1stDorInt Ulnar C8-T1 Nml Nml Nml Nml Nml Right Ext Indicis Radial (Post Int) C7-8 Nml Nml Nml Nml Nml Right Ext Digitorum Radial (Post Int) C7-8 Nml Nml Nml Nml Nml Right BrachioRad Radial C5-6 Nml Nml Nml Nml Nml Right PronatorTeres Median C6-7 Nml Nml Nml Nml Nml Right Abd Poll Brev Median C8-T1 Nml Nml Nml Nml Nml Right ABD Dig Min Ulnar C8-T1 Nml Nml Nml Nml Nml Right FlexPolLong Median (Ant Int) C7-8 Nml Nml Nml Nml Nml Right Abd Poll Long Radial (Post Int) C7-8 Nml Nml Nml Nml Nml Left 1stDorInt Ulnar C8-T1 Nml Nml Nml Nml Nml Left Ext Indicis Radial (Post Int) C7-8 Nml Nml Nml Nml Nml Left Ext Digitorum Radial (Post Int) C7-8 Nml Nml Nml Nml Nml Left BrachioRad Radial C5-6 Nml Nml Nml Nml Nml Left PronatorTeres Median C6-7 Nml Nml Nml Nml Nml Left Abd Poll Brev Median C8-T1 Nml Nml Nml Nml Nml Left ABD Dig Min Ulnar C8-T1 Nml Nml Nml Nml Nml Left FlexPolLong Median (Ant Int) C7-8 Nml Nml Nml Nml Nml Left Abd Poll Long Radial (Post Int) C7-8 Nml Nml Nml Nml Nml Right Biceps Musculocut C5-6 Nml Nml Nml Nml Nml Right Triceps Radial C6-7-8 Nml Nml Nml Nml Nml Right Deltoid Axillary C5-6 Nml Nml Nml Nml Nml Left Biceps Musculocut C5-6 Nml Nml Nml Nml Nml Left Triceps Radial C6-7-8 Nml Nml Nml Nml Nml Left Deltoid Axillary C5-6 Nml Nml Nml Nml Nml
== END 2025-07-02 12:19 | disposition home or self-care (01) ==
PROVIDERS: PCP Family Medicine; Visit Provider Nurse Practitioner Adult Health
DX: M25.512 Pain in left shoulder (principal); R20.0 Anesthesia of skin; G56.23 Lesion of ulnar nerve, bilateral upper limbs
CPT/HCPCS: 95886; 95911

== ENCOUNTER 2025-07-08 08:34 | Outpatient (CLI) | payer OTHER, SELFPAY ==
--- NOTE | 2025-07-08 09:25 | ECG_ITS ---
Test Date: 2025-07-08 09:36:14 Measurements Intervals [place] Rate: 56 P: 65 [place]: 153 QRS: 43 QRSD: 102 T: 33 QT: 380 QTc: 368 Interpretive Statements SINUS BRADYCARDIA INCOMPLETE RIGHT BUNDLE BRANCH BLOCK BASELINE ARTIFACT- I, II, III, AVR, AVL, AVF, V1 BORDERLINE ECG No previous ECG available for comparison Electronically Signed On 07-08-2025 09:43:54 CDT by Maximino Barbosa D.O.
== END 2025-07-08 08:35 | disposition home or self-care (01) ==
LOC: ANHLAB 08:37 → ANHCARD 09:23
PROVIDERS: PCP Family Medicine; Visit Provider Family Medicine
DX: R07.9 Chest pain, unspecified (principal); Z01.818 Encounter for other preprocedural examination; I45.10 Unspecified right bundle-branch block
CPT/HCPCS: 93005

== ENCOUNTER 2025-08-11 00:48 | Day surgery (SDC) | payer OTHER, SELFPAY ==
[2025-07-30 12:42] VITALS: BMI 23.1
--- NOTE | 2025-07-30 12:43 | PC.NURSE ---
[facility] has started construction of its new state of the art ER which will open Spring 2026. With this, we anticipate parking may be a challenge for some our surgical patients and families. Parking spaces are limited but are available for all Surgical, obstetrics, and ER patients sharing this lot. If you arrive and find you are having a hard time finding a parking space, please note that we understand the challenges, please drive around the hospital and park near Hospital Entrance 1. When you enter this entrance, you can ask a volunteer to direct or take you back to the surgical waiting area to check in. We appreciate everyone?s understanding of these expected challenges while we build for your future. Report to the Outpatient Waiting Room, entrance under the green pavilion located off [address], at time _1100_ on date _[phone]_. Planned Procedure Time: _1pm_.? Time changes happen often and if your time is changed the preop area will call you the afternoon before. - You and your visitor will be asked to self-screen and do not enter if you have any COVID symptoms. Please call surgeon if you need to reschedule. - A mask is optional within the hospital at this time. Patients may have clear liquids (water, carbonated beverages, clear teas, apple juice) until 3 hours prior to surgery with a maximum of 20 ounces. - No food from midnight until time of surgery and no smoking, or chewing tobacco (or any form of nicotine). No chewing gum, candy or mints. Take only the following medications with a SIP of water on the morning of surgery: __None DO NOT STOP ANY OF YOUR OTHER PRESCRIPTION MEDICATIONS PRIOR TO SURGERY EXCEPT THE FOLLOWING Hold all vitamins and supplements for 3 days per anesthesiologist. Medications to discontinue per physician ____Meloxicam Date to take last lsmo__[phone]____ Please no make-up, nail albanian, hairspray, perfume, deodorant, or body powder the day of surgery.? No jewelry (including any body piercings) or valuables the day of surgery, leave them at home.? Please take a shower or bath the night before, or the morning of, surgery with an antibacterial soap.? Wear comfortable, loose fitting clothing.? - Jewelry must be removed prior to entering the operating room.? Rings and piercings that are not removed may be cut off. - The hospital will not accept responsibility for valuables.? - Please leave all valuables, including medications, at home the day of surgery. If you are going home after surgery, a licensed driver's license examiner must drive you home.? - NO public transportation without another adult if you receive anesthesia. - We recommend that an adult stay with you for 24 hours following discharge. - We also recommend that you do not drive, make important decision, drink alcoholic beverages, or take any drugs that were not prescribed by your health care provider for at least 24 hours after your discharge time. Follow any additional instructions given to you from your surgeon. Telephone instructions given to _Socrates__and asked if any additional questions and then verbalized understanding. Patient advised to call surgeon office or pre surgery nurse liaison [phone] if any additional questions.
[2025-08-11] VITALS (10 sets, daily range): BP systolic 101–125; BP diastolic 65–88; PULSE 60–93; RESP 16–20; TEMP 36.1–36.2; O2SAT 95–100
--- NOTE | ~2025-08-11 | XR_ITS ---
EXAMINATION: XR shoulder LT min 2V, 08/11/2025 17:43 [facility] HISTORY: post op COMPARISON: No comparisons available. Findings: No acute fracture or malalignment. No significant degenerative changes. Soft tissues unremarkable. Impression: No acute fracture or malalignment. Reviewed, dictated and finalized at location P. [facility] SPECIALIST Impression: No acute fracture or malalignment.
--- NOTE | 2025-08-11 07:15 | WPDHPUPDATE1 ---
History and Physical Update Update Date/Time: 08/11/25 07:15 History and Physical has been reviewed, including an updated exam of the patient. There are NO changes in the patient's condition. Risks, benefits, and alternatives have been discussed and questions answered. Patient agrees to proceed with procedure.
[2025-08-11] MEDS: ACETAMINOPHEN 500 MG TABLET 1000 MG PO (12:10)
[2025-08-11] MEDS: LACTATED RINGERS 1,000 ML 30 ML IV CONT ×2 (12:14→17:11)
[2025-08-11] MEDS: KETOROLAC 15 MG/ML VIAL (*BKC) IV PUSH (12:15)
--- NOTE | 2025-08-11 14:45 | P.PNAN_ITS ---
Anes - Initial Pre Proc Eval Procedure: Operation Date: 08/11/25 13:00 Proposed Procedures p Left Shoulder Arthroscopy, Rotator Cuff Repair, Subacromial Decompression Distal Clavicle Excision - Clay May MD Date/Time: 08/11/25 14:45 Surgeon: Clay May MD Pre Op Diagnosis: complete lt rot cuff tear Patient Data Age: 54 Gender: M Height: 1.8 m Weight: 73.1 kg Last Vital Signs Temp 97.2 F L 08/11/25 12:37 Pulse 60 08/11/25 12:37 Resp 16 08/11/25 12:37 BP 115/79 08/11/25 12:37 Pulse Ox 100 08/11/25 12:37 O2 Del Method Room Air 08/11/25 12:37 Allergies Allergy/AdvReac Type Severity Reaction Status Date / Time naproxen AdvReac Mild Diarrhea Verified 08/11/25 12:35 Home Medications ?Medication ?Instructions ?Recorded ?Confirmed ?Type multivitamin 1 tablet PO DAILY 08/19/20 1 10/11/24 History meloxicam 7.5 mg tablet 7.5 mg PO DAILY #60 tabs 08/11/25 Rx acetaminophen 500 mg tablet 500 mg PO HS 07/30/2507/18 History (Acetaminophen Extra Strength) oxycodone-acetaminophen 5 mg-325 1 - 2 tablet PO Q4-6H PRN pain #30 08/11/25 Rx mg tablet tabs Patient hx anesthesia problems: none Family hx anesthesia problems: none Results Review: All pre-operative results and documents have been reviewed as part of the pre- operative evaluation. [facility] Past Medical History Medical History Abnormal nerve conduction studies Ulnar neuropathy of both upper extremities Numbness of left hand Limited range of motion (ROM) of shoulder Left shoulder pain Screening for thyroid disorder Screening for diabetes mellitus History of trigger finger Screening for prostate cancer Encounter for screening for lipid disorder Surgical History Surgical History History of repair of right rotator cuff (~08/26/20) Subacromial Decompression Family History Family History Mother Family history of lupus erythematosus Father No problems noted. Other Diabetes mellitus Family history of arthritis Family history of malignant neoplasm Hypertension Social History Social History Smoking status: Never smoker Second hand tobacco smoke exposure: No Alcohol intake: never Substance use: never Substance use type: does not use Do You Feel Safe in your Home?: Yes Lack of Transportation: No Lack of Food: Never True Current Housing: I Have Housing Concerned About Future Housing: No Difficulty Paying Gas/Electric Bills: No Difficulty Paying for Meds: No Currently Unemployed: No Education: Trade/Vocational Certificate Difficulty w/ Childcare or Family Care: No Living arrangements: with family Additional living arrangements comments: SPOUSE AND DAUGHTER Occupation/Education: occupation Additional occupation/education comments: [employer] Gender identity (if verbalized by the patient): Male Spiritual care concerns: No Anes - Eval Final PreProcedure Day of Procedure 08/11/25 14:45 Patient weight: normal Heart: regular rate and rhythm Lungs: clear to auscultation Airway: Mallampati scale class II Neurological: alert and oriented Last oral intake: >/= 8 hours ASA classification: III Emergent: no Anesthetic plan: proceed Anesthesia type and monitoring: general ETT and standard monitoring Results Review: All pre-operative results and documents have been reviewed as part of the pre- operative evaluation. Informed Consent: The patient's anesthetic plan and its attendant risks and benefits were discussed with the patient/family/POA. Questions were solicited and answers provided to the satisfaction of the patient/family/POA.
[2025-08-11] MEDS: ceFAZolin 2 GM in SODIUM CHLORIDE 0.9% IV 50 ML 100 ML IVPB (14:51)
[2025-08-11] MEDS: BUPIVACAINE/EPINEPHRINE 0.5% 50 ML VIAL 30 ML INFILTRATE (15:34)
--- NOTE | 2025-08-11 17:00 | W.PM.PROC2 ---
Procedure Note - Detailed Date of Procedure 08/11/25 Pre-op Diagnosis Right shoulder 1.High-grade partial bursal side rotator cuff tear 2. Subacromial impingement 3. AC joint degenerative arthritis Post-op Diagnosis Same Procedure Performed Right shoulder 1. Arthroscopic rotator cuff repair 2. Arthroscopic subacromial decompression 3. Arthroscopic distal clavicle excision Surgeon Clay May MD [place] Lindsey Nieves PA-C Anesthesia General Findings High-grade partial bursal side tear of the supraspinatus with a small amount of lateral cuff tissue remaining. Obvious impingement on the type 3 acromial spur at this mid tendinous area. Suture anchor at the footprint with 4 suture strands into the cuff tear. The sutures were brought laterally to a SwiveLock anchor. The repair quit appeared quite anatomic. The large subacromial spur was removed with the arthroscopic bur. The distal clavicle was then excised, approximately 10 mm. The articular tissues were normal other than hyperemia of the articular superior rotator cuff and minimal fraying of the upper subscapularis. Description of Procedure Preoperative antibiotics were given. The patient was bought brought to the operating room. A general anesthetic was administered. The patient was carefully positioned in the beach chair position. The head and neck were carefully positioned. The non operative extremity was also carefully positioned. The shoulder was prepped and draped in the usual sterile fashion. Examination was performed. There were no abnormal findings. Standard posterior and anterior arthroscopic portals were established. Inflow achieved with the arthroscopic pump using saline and epinephrine. The glenohumeral joint was carefully inspected. Minimal fraying of the upper subscapularis did not require treatment. There was significant hyperemia the articular supra and infraspinatus without tearing. The biceps appeared healthy as did the labrum and articular cartilage. Attention was turned to the subacromial space. The bursa was proliferative and there was clear impingement by a large subacromial spur type 3 acromion. A complete bursectomy was performed. The tear configuration was carefully assessed. Acromioplasty was performed the arthroscopic bur shaving the prominent anterolateral bone. The CA ligament was released in the process. After assessing the tear, an all suture anchor was pierced through the intact articular tendon at the medial aspect of the footprint just lateral to the torn bursal fibers of the supraspinatus tendon. Four suture limbs were passed into the defect. The sutures were brought laterally to an anchor which reduced the tear quite nicely. Attention was turned to the distal clavicle which was excised using an accessory anterior portal to approximately 8-10 mm. 70 degree arthroscope was used to confirm complete excision of the superior bone. The arthroscopic instruments were removed. The wounds were closed with 3-0 Monocryl subcuticular suture and steri strips. There were no complications. A sling was applied and the patient brought to the recovery room. Physician addictions counselor assistant, Lindsey Nieves PA-C, required for surgery; including patient positioning, draping, arthroscopic camera operation, maintaining instrument position, suture retrieval, wound closure, and dressing and sling placement. Implants Arthrex FiberTak all suture rotator cuff anchor. Arthrex SwiveLock BioComposite anchor. Estimated Blood Loss 20 Pathology None sent Complications No immediate complications Condition Stable Disposition PACU [facility] Billing Surgery - Charge Forward: Surgery Billing
== END 2025-08-11 19:11 | disposition home or self-care (01) ==
PROVIDERS: PCP Family Medicine; Visit Provider Orthopaedic Surgery
PROC: (CPT 29805; principal; 2025-08-11 13:00)
DX: M75.111 Incomplete rotator cuff tear or rupture of right shoulder, not specified as traumatic (principal); M75.41 Impingement syndrome of right shoulder; M19.011 Primary osteoarthritis, right shoulder
CPT/HCPCS: 29827; 29826; 29824; 73030; J0690; A4565; A9270; C1713; J0166; J1100; J1171; J1885; J2003; J2250; J2704; J3010; J7120